=== PATIENT | male | born 1980 | race Two or more races ===

== ENCOUNTER 2019-02-15 19:36 | Emergency (ER) | payer MEDICAID ==
[~2019-02-15] VITALS: Ht 177.8 cm; Wt 99.8 kg
[2019-02-15] MEDS ORDERED: MAGNESIUM500 MG PO (20:19)
[2019-02-15] MEDS ORDERED: MONTELUKAST SOD10 MG ORAL (20:19)
[2019-02-15] MEDS ORDERED: MELATONIN5 M5 ORAL (20:19)
[2019-02-15] MEDS ORDERED: LEXAPRO10 MG ORAL (20:19)
--- NOTE | 2019-02-15 20:31 | NUR ---
ED Nurse Note: pt brought in by caregiver c/o right inner thigh pain, per caregiver statement pt started complaining of pain since today, denies any recent injuries nor fall. pt ambulatory w/ steady gait, vss, will cont monitor.
[2019-02-15 20:32] VITALS: BP 135/74
--- NOTE | 2019-02-15 21:19 | NUR ---
ED Nurse Note: PT OFF TO CT VIA WHEELCHAIR ACCOMPANIED BY [employer].
[2019-02-15 21:22] LABS: APPEARANCE,URINE CLEAR; BILIRUBIN, URINE NEGATIVE (NEGATIVE); COLOR,URINE PALE YELLOW; GLUCOSE, URINE (UA) NEGATIVE (NEGATIVE); KETONES,URINE NEGATIVE (NEGATIVE); LEUKOCYTE ESTERASE ,URINE NEGATIVE (NEGATIVE); NITRITE,URINE NEGATIVE (NEGATIVE); PH,URINE 6 (4.5-8.0); PROTEIN,URINE NEGATIVE (NEGATIVE); UROBILINOGEN,URINE NORMAL MG/DL (0.0-1.0)
--- NOTE | 2019-02-15 22:25 | Emergency Room Report ---
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 Denies fall or injury, urinary symptoms. Rating the pain 10 out of 10 without radiation. Denies nausea vomiting, fever and chills, diffuse abdominal pain. Patient has genitalia with external appearance female genitalia. Denies discharge, fever and chills, chest pain, shortness of breath, palpitation, no other associated symptoms. Mom gave Motrin prior to coming here and reports that patient felt improved Allergies: Coded Allergies: No Known Allergies (Unverified , 02/15/19) Patient History Past Medical History: see triage record Past Surgical History: unable to obtain Pertinent Family History: none Immunizations: UTD Reviewed Nursing Documentation: PMH: Agreed; PSxH: Agreed Review of Systems All Other Systems: negative except mentioned in HPI Physical Exam Vital Signs Date Time Temp Pulse Resp B/P (MAP) Pulse Ox O2 Delivery O2 Flow Rate FiO2 02/15/19 19:47 98.2 86 14 135/74 (94) 98 Room Air Sp02 EP Interpretation: reviewed, normal General Appearance: no apparent distress, alert, GCS 15, non-toxic Head: normocephalic, atraumatic Eyes: bilateral eye normal inspection, bilateral eye PERRL ENT: hearing grossly normal, normal pharynx, no angioedema, normal voice Neck: full range of motion, supple/symm/no masses Respiratory: chest non-tender, lungs clear, normal breath sounds, no rhonchi, no respiratory distress, speaking full sentences Cardiovascular #1: regular rate, rhythm, no edema, no murmur Gastrointestinal: non tender, soft, no organomegaly, no peritonitis, no bruit, non-distended, no guarding, no hernia, no pulsatile mass, no rebound Rectal: deferred Genitourinary: no CVA tenderness, other - , no buldging mass Musculoskeletal: back normal, no calf tenderness, pelvis stable Neurologic: alert, motor strength/tone normal, oriented x3, sensory intact, responsive, speech normal Psychiatric: normal inspection, judgement/insight normal Skin: no rash Lymphatic: normal inspection, no adenopathy Medical Decision Making PA Attestation All diagnoses and treatment plans were reviewed and discussed with my supervising physician Dr. 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 Denies fall or injury, urinary symptoms. Rating the pain 10 out of 10 without radiation. Denies nausea vomiting, fever and chills, diffuse abdominal pain. Patient has genitalia with external appearance female genitalia. Denies discharge, fever and chills, chest pain, shortness of breath, palpitation, no other associated symptoms. Mom gave Motrin prior to coming here and reports that patient felt improved Ddx considered but are not limited to: Inguinal hernia, femoral hernia, appendicitis, inguinal mass Vital signs: are WNL, pt. is afebrile H&PE are most consistent with: suprapubic pain ORDERS: abdominal CT no contrast, UA ED INTERVENTIONS: None required at this time. Discharge: Patient stable at time of discharge, patient was advised to follow- up with her primary care provider for further imaging possibly MRI at this time CT scan did not show any abnormality, no mass was identified. Patient to continue taking Motrin or Tylenol for symptom relief. If worsening symptoms return to the emergency room CT/MRI/US Diagnostic Results CT/MRI/US Diagnostic Results : Imaging Test Ordered: CT abdomen pelvis Without contrast Impression IMPRESSION: Study significantly degraded by persistent patient motion. No acute abdominal or pelvic abnormality identified. Last Vital Signs Date Time Temp Pulse Resp B/P (MAP) Pulse Ox O2 Delivery O2 Flow Rate FiO2 02/15/19 20:32 98.2 86 14 135/74 98 Room Air Disposition: HOME, SELF-CARE Condition: Stable Patient Instructions: Abdominal Pain, Adult, [id number], Scoliosis Additional Instructions: Patient stable at time of discharge, patient was advised to follow-up with her primary care provider for further imaging possibly MRI at this time CT scan did not show any abnormality, no mass was identified. Patient to continue taking Motrin or Tylenol for symptom relief. If worsening symptoms return to the emergency room Nelson Rahman Feb 15, 2019 22:25
--- NOTE | 2019-02-15 22:33 | Diagnostic Imaging Report ---
EXAM: CT Abdomen and Pelvis Without Intravenous Contrast CLINICAL HISTORY: MASS TECHNIQUE: Axial computed tomography images of the abdomen and pelvis without intravenous contrast. CTDI is 44 mGy and DLP is 2854 mGy-cm. One or more of the following dose reduction techniques were used: automated exposure control, adjustment of the mA and/or kV according to patient size, use of iterative reconstruction technique. COMPARISON: No relevant prior studies available. FINDINGS: Artifacts: Study markedly degraded by patient motion. Lung bases: Unremarkable. No mass. No consolidation. ABDOMEN: Liver: Hepatosplenomegaly present. Gallbladder and bile ducts: The gallbladder is contracted. No calcified stones. No ductal dilation. Pancreas: Marked fatty replacement of the pancreas. No ductal dilation. Spleen: See above. Adrenals: Unremarkable. No mass. Kidneys and ureters: Unremarkable. No obstructing stones. No hydronephrosis. Stomach and bowel: Unremarkable. No obstruction. No mucosal thickening. PELVIS: Appendix: No findings to suggest acute appendicitis. Bladder: Unremarkable. No stones. Reproductive: Unremarkable as visualized. ABDOMEN and PELVIS: Intraperitoneal space: Unremarkable. No free air. No significant fluid collection. Bones/joints: Marked scoliosis. No acute fracture. No dislocation. Soft tissues: Additional clinical information provided by the referring clinician indicates that there is a mass in the right groin. No corresponding mass identified. Vasculature: Unremarkable. No abdominal aortic aneurysm. Lymph nodes: Unremarkable. No enlarged lymph nodes. IMPRESSION: Study significantly degraded by persistent patient motion. No acute abdominal or pelvic abnormality identified.
[2019-02-15] MEDS ORDERED: IBUPROFEN600 MG ORAL (22:36)
--- NOTE | 2019-02-15 22:46 | NUR ---
ED Nurse Note: pt is cleared to be d/c per ER PROVIDER, pt discharge and aftercare instruction provided w/ prescription, pt education done via discussion and handout, pt advised to follow up with pcp or return to ed if changes in condition, vss, ambulatory w/steady gait, pt's mother verbalized understanding, pt accompanied by mother and caregiver, left w/ all belongigns id band removed.
[2019-02-15 22:47] VITALS: BP 135/74
== END 2019-02-15 22:47 | disposition home or self-care (01) ==
LOC: EMR 20:20
DX: R10.9 Unspecified abdominal pain (principal); M41.9 Scoliosis, unspecified; Q99.8 Other specified chromosome abnormalities
CPT/HCPCS: 74176; 81003; Z7502; 99284